=== PATIENT | female | born 1990 | race Asian ===

== ENCOUNTER → 2021-04-27 | Outpatient (CLI) | payer BC ==
[~2021-04-27] MED LIST: METHOTREXATE SODIUM (PF) 25 MG/ML 2 ML VIAL IM NR
[2021-04-27 11:40] VITALS: BP 114/74; PULSE 105; RESP 16; TEMP 98.5
== END ==
LOC: PROCWHC3 11:13
PROVIDERS: ATTEND Obstetrics & Gynecology
DX: O00.109 Unspecified tubal pregnancy without intrauterine pregnancy (principal); Z3A.00 Weeks of gestation of pregnancy not specified
CPT/HCPCS: 96402; J9260

== ENCOUNTER → 2021-04-27 | Outpatient (CLI) | payer BC ==
--- NOTE | 2021-04-27 10:23 | US ---
EXAMINATION TYPE: Transabdominal DATE OF EXAM: 04/27/2021 9:52 AM COMPARISON: NONE CLINICAL HISTORY: O26.851 BLEEDING/SPOTTING. bleeding since apr 03, no pain today, patient states her "numbers" are going up EXAM PERFORMED: OBTA/OBTV EXAM MEASUREMENTS: GESTATIONAL AGE / DATING Physician Established: Not yet established Dates by LMP: (8 weeks/0 days) EDC: 12/07/2021 Dates by First Scan: No previous this is first scan Dates by Current Scan for: no IUP seen MATERNAL ANATOMY Uterus: 6.2 x 4.9 x 4.0cm Right Ovary: 3.0 x 1.6 x 1.8cm Left Ovary: 2.2 x 1.1 x 1.7cm Post CDS / Adnexa: 3.2cm possible mass adjacent to right ovary Presence of free fluid: yes, mild rt adnexa and CDS Presence of corpus luteal cyst: not seen Presence of subchorionic bleed: no GESTATION / SURVEY No IUP seen Date of LMP: 03/02/2021 Beta HcG (if available): not done here IMPRESSION: No intrauterine noted at this time. In the setting of a positive beta hCG 3 possibilities i ncludes which include a normal early IUP, missed spontaneous as well as ectopic . C orrelate clinically with serial beta hCG and/or ultrasound.
[2021-04-27 18:32] LABS: HCT 37.5 % (37.2-46.3); HGB 12.4 g/dL (12.0-15.0); MCHC 33.1 g/dL (32.0-37.0); MCV 93.8 fL (80.0-97.0); NRBC Per 100 WBC 0 /100 WBCS (0.0-0.0); Platelet Count 239 X 10*3/uL (140-440); RDW 12.4 % (11.5-14.5); WBC 7.08 X 10*3/uL (4.50-10.00)
[2021-04-27 18:46] LABS: African American GFR (CKD) 150.5 (60.0-200.0); Blood Urea Nitrogen 9.8 mg/dL (9.0-27.0); Non-African American GFR(CKD) 129.9 (60.0-200.0)
== END | disposition home or self-care (01) ==
LOC: RADUSWWP 09:10
PROVIDERS: ATTEND Obstetrics & Gynecology
DX: O00.109 Unspecified tubal pregnancy without intrauterine pregnancy (principal); Z3A.00 Weeks of gestation of pregnancy not specified
CPT/HCPCS: 76801; 76817; 82565; 84450; 84460; 84520; 84702; 85027; 86850; 86900; 86901

== ENCOUNTER 2022-03-06 06:15 | Inpatient (IN) | payer BC ==
[2022-03-06] MEDS ORDERED: LIDOCAINE 0.5% (PF) 5 MG/ML (50 ML SDV) SQ PRN (07:03)
[2022-03-06] MEDS ORDERED: TERBUTALINE 1 MG/ML VIAL SQ PRN (07:03)
[2022-03-06] MEDS: LACTATED RINGERS 1,000 ML IV SCH ×4 (07:10→22:00)
[2022-03-06] MEDS ORDERED: OXYTOCIN 30 UNITS/500 ML NS 30 UNIT in SALINE 1 500ML.BAG IV SCH (07:15)
[2022-03-06 07:17] LABS: Basophils # (A) 0.1 k/uL (0-0.2); Basophils % (A) 1 %; Eosinophils # (A) 0.1 k/uL (0-0.7); Eosinophils % (A) 1 %; HGB 11.2 gm/dL (11.4-16.0); Lymphocytes # (A) 2.7 k/uL (1.0-4.8); Lymphocytes % (A) 28 %; MCH 29.3 pg (25.0-35.0); MCHC 34.1 g/dL (31.0-37.0); MCV 86.1 fL (80.0-100.0); Mean Platelet Volume 8.5; Monocytes # (A) 0.7 k/uL (0-1.0); Monocytes % (A) 7 %; Neutrophils # (A) 5.9 k/uL (1.3-7.7); Neutrophils % (A) 61 %; Platelet Count 211 k/uL (150-450); RBC 3.83 m/uL (3.80-5.40); RDW 14.4 % (11.5-15.5); WBC 9.7 k/uL (3.8-10.6)
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
[2022-03-06] MEDS ORDERED: fentaNYL (PF) 50 MCG/ML 5 ML AMP ONE (12:19)
[2022-03-06] MEDS ORDERED: SODIUM CHLORIDE 0.9% 100 ML BAG ONE (12:19)
[2022-03-06] MEDS ORDERED: ROPIVACAINE 5 MG/ML 20 ML AMPULE ONE (12:19)
[2022-03-06] MEDS ORDERED: ACETAMINOPHEN IV (For NPO) 1,000 MG in EMPTY BAG 1 BAG IVPB STA (16:43)
[2022-03-06] MEDS ORDERED: CITRIC ACID-SODIUM CITRATE 15 ML CUP PO ONE (19:48)
[2022-03-06] MEDS ORDERED: MIDAZOLAM 2 MG/2 ML VIAL ONE (20:45)
[2022-03-06] MEDS ORDERED: OXYTOCIN 30 UNITS/500 ML NS BAG IV ONE (20:45)
[2022-03-06] MEDS ORDERED: ONDANSETRON 4 MG/2 ML VIAL ONE (20:45)
[2022-03-06] MEDS ORDERED: fentaNYL (PF) 50 MCG/ML 2 ML AMP ONE (20:45)
[2022-03-06] MEDS ORDERED: KETOROLAC 15 MG/ML 1 ML VIAL ONE (20:45)
[2022-03-06] MEDS ORDERED: MORPHINE SULFATE (PF) 0.3 MG/0.3 ML SYR ONE (20:45)
[2022-03-06] MEDS ORDERED: KETAMINE 10 MG/ML 20 ML VIAL ONE (20:45)
[2022-03-06] MEDS ORDERED: METHYLERGONOVINE 0.2 MG/ML 1 ML AMP ONE (20:45)
[2022-03-06] MEDS ORDERED: DEXAMETHASONE SOD PHOS (MDV) 100 MG/10 ML VIAL ONE (20:45)
[2022-03-06] MEDS ORDERED: CAFFEINE-SODIUM BENZOATE 1,000 MG in SODIUM CHLORIDE 0.9% 1,000 ML IVPB ONE (21:30)
[2022-03-06] MEDS ORDERED: HYDROmorphone 1 MG/ML 1 ML SYRINGE IVP PRN (21:52)
[2022-03-06] MEDS ORDERED: NALOXONE 0.4 MG/ML 1 ML VIAL IV PRN ×2 (21:52→22:22)
[2022-03-06] MEDS ORDERED: diphenhydrAMINE 50 MG CAP PO PRN (21:52)
[2022-03-06] MEDS ORDERED: METOCLOPRAMIDE 5 MG/ML 2 ML VIAL IVP PRN (21:52)
[2022-03-06] MEDS ORDERED: ZOLPIDEM 5 MG TAB PO PRN (21:52)
[2022-03-06] MEDS ORDERED: ONDANSETRON 4 MG/2 ML VIAL IVP PRN (21:52)
[2022-03-06] MEDS ORDERED: diphenhydrAMINE 50 MG/ML 1 ML VIAL IVP PRN ×2 (21:52)
[2022-03-06] MEDS ORDERED: diphenhydrAMINE 25 MG CAP PO PRN (22:00)
[2022-03-06] MEDS ORDERED: HYDROmorphone 2 MG TAB PO PRN (22:00)
--- NOTE | 2022-03-06 22:09 | P.OP ---
Date of Procedure: 03/06/22 Preoperative Diagnosis: Intrauterine at 38-2/7 weeks Cholestasis of Spinal headache Maternal intolerance of labor Arrest of descent and dilatation Postoperative Diagnosis: Intrauterine at 38-2/7 weeks' gestation Cholestasis of Spinal headache Maternal intolerance of labor Arrest of descent and dilatation Occiput transverse Procedure(s) Performed: Primary low transverse section Anesthesia: spinal Surgeon: Charlette Chen Buck Presser #1: Juliana Welch Estimated Blood Loss (ml): 1,500 IV fluids (ml): 1,500 Urine output (ml): 200 Pathology: other (Placenta) Condition: stable Disposition: floor Indications for Procedure: This is a 31-year-old 4 para 20-2 woman who was admitted at 38-2/7 weeks' gestation for induction of labor secondary to cholestasis of . She underwent a Pitocin induction of labor and received an epidural anesthetic when she is approximate 4 cm dilated. Unfortunately this was difficult epidural placement in the patient immediately developed a spinal headache that persisted through the duration of her labor. She did reach complete cervical dilation however with maternal effort to push she had severe exacerbation of her head ache and neck pain. She was not able to facilitate any descent of the vertex and asynclitism was suspected. After discussing the situation in detail with the patient as well as anesthesiology team the decision was made to proceed to primary low transverse section. The risks of the procedure were reviewed with the patient and her and include bleeding, transfusion, infection, damage to bowel, bladder, ureters and/or other maternal or structures. The alternative which was to continue attempting to push was unacceptable to the patient and I was in agreement with this as well. Epidural was removed and when the patient was transported the operating room and a spinal was placed. Grossly bloody CSF fluid was noted at that time. Operative Findings: Female in the right occiput transverse position with Apgars of 8 at 1 minute and 9 at 5 minutes weighing 8 lbs. 0 oz., 3630 g. Extensive venous sinuses and varicosities along the anterior low uterine segment. Normal- appearing bilateral fallopian tubes and ovaries. Calcified and abnormal appearing placenta. Description of Procedure: After the patient and her were counseled and consent was obtained. She was transported to the operating room where spinal anesthetic was placed without difficulty. Of note bloody's CSF fluid was obtained. The patient was in positioned, prepped and draped in the dorsal supine position with a leftward tilt. After the anesthetic was confirmed adequate a low transverse skin incision was made and carried down to the underlying fascia sharply. The fascia was incised in the midline and extended bilaterally with the Heart scissors. The rectus muscles were then in the midline and the peritoneum was identified, tented up and entered sharply. The peritoneal incision was extended inferiorly and superiorly with good visualization the bladder. At this point the patient did not have optimal pain control. The bladder blade was placed and venous sinuses were noted on the low uterine segment. A low transverse uterine incision was made attempting to go superior to these venous sinuses. The incision was carried down to the underlying amniotic membranes sharply. The uterine incision was extended bilaterally bluntly. The was noted to be deeply engaged in the maternal pelvis. This is a difficult extraction of the vertex secondary to extreme petite maternal status. The head was also in the transverse position. The head was as gently as possible delivered through the incision and the rest the was delivered onto the field. The nose and mouth were bulb suctioned and the cord was clamped and cut. The infant was taken to the warmer. The placenta was then manually removed and was noted to be calcified. The uterus was then exteriorized. The uterus was quite atonic and the patient received Pitocin immediately. The uterine incision was delineated with Kim clamps and was noted to be a right lateral extension. Uterine vasculature was not involved. The uterine incision was then closed in a running locked fashion followed by second imbricating layer of the same. Several additional [id number] sutures were placed along the incision line for hemostasis which was then achieved. Of note the patient was quite uncomfortable throughout this process and her pain was managed by the anesthesiology team however the rectus muscles were quite tight. This made returning the uterus to the abdomen difficult. Once the uterus was returned to the abdomen the incision was further reinspected and was noted to be hemostatic. The gutters were cleared of clot and debris. There is noted to be multiple areas of bleeding along the rectus muscles which was addressed with Bovie electrocautery. Surgicel powder was placed prophylactically along the uterine incision as well as several areas on the rectus muscles. Hemostasis was then noted. The fascia was then closed in a running fashion with 0 Vicryl suture. The subcuticular tissue was irrigated and again Bovie electrocautery was utilized were necessary for hemostasis. The skin was then closed using lauren. Following completion of the surgery the uterus was noted to be boggy and well above the level of the umbilicus. Bimanual examination was then undertaken and a large amount of clot and debris were expressed, approximately 500 mL's. The uterus was then noted to be firm and at the level of the umbilicus. The patient did receive intraoperatively Methergine 1 and Hemabate 1. Prophylactically 800 g of Cytotec was also placed rectally. EBL for the entire of the surgery was approximately 1500ML. She received 1500 mL's of crystalloid intraoperatively. All counts reported to me as correct by the operating room staff and she did receive antibiotics preoperatively. She was transported to the re-recovery area in stable condition. Stat CBC and coags have been ordered. The placenta will be sent for pathology evaluation.
[2022-03-06] MEDS ORDERED: MORPHINE SULFATE 2 MG/ML SYRINGE IVP PRN (22:22)
[2022-03-06] MEDS ORDERED: KETOROLAC 15 MG/ML 1 ML VIAL IVP PRN (22:22)
[2022-03-06 22:54] LABS: HCT 28.9 % (34.0-46.0); Hypochromasia Slight; MCH 29.5 pg (25.0-35.0); MCHC 32.7 g/dL (31.0-37.0); MCV 90.3 fL (80.0-100.0); Mean Platelet Volume 8.7; Platelet Count 180 k/uL (150-450); RDW 14.6 % (11.5-15.5); WBC 31.2 k/uL (3.8-10.6)
[2022-03-06 22:58] LABS: Prothrombin Time 10.6 sec (9.0-12.0)
[2022-03-06 23:02] LABS: ALT 15 U/L (4-34); AST 29 U/L (14-36); African American GFR (CKD) >90 (>60 ml/min/1.73 sqM); Albumin 2.3 g/dL (3.5-5.0); Alkaline Phosphatase 160 U/L (38-126); Anion Gap 7 mmol/L; Blood Urea Nitrogen 4 mg/dL (7-17); Calcium 7.3 mg/dL (8.4-10.2); Carbon Dioxide 19 mmol/L (22-30); Chloride 114 mmol/L (98-107); Glucose 67 mg/dL (74-99); Non-African American GFR(CKD) >90 (>60 ml/min/1.73 sqM); Potassium 3.9 mmol/L (3.5-5.1); Sodium 140 mmol/L (137-145); Total Bilirubin 0.5 mg/dL (0.2-1.3); Total Protein 4.8 g/dL (6.3-8.2)
[2022-03-06 23:10] LABS: HGB 9.4 gm/dL (11.4-16.0)
[2022-03-07] MEDS: ACETAMINOPHEN TAB 500 MG TAB PO SCH ×4 (01:01→20:39)
[2022-03-07] MEDS: IBUPROFEN 600 MG TAB PO SCH ×3 (06:40→18:06)
[2022-03-07 07:08] LABS: Basophils % (A) 0 %; Eosinophils % (A) 0 %; HCT 23.2 % (34.0-46.0); Hypochromasia Slight; Lymphocytes # (A) 2.2 k/uL (1.0-4.8); Lymphocytes % (A) 8 %; MCH 30.3 pg (25.0-35.0); MCHC 34.2 g/dL (31.0-37.0); MCV 88.6 fL (80.0-100.0); Mean Platelet Volume 8.8; Monocytes # (A) 1.2 k/uL (0-1.0); Monocytes % (A) 5 %; Neutrophils # (A) 23.7 k/uL (1.3-7.7); Neutrophils % (A) 87 %; Platelet Count 178 k/uL (150-450); RBC 2.62 m/uL (3.80-5.40); RDW 14.8 % (11.5-15.5); WBC 27.3 k/uL (3.8-10.6)
[2022-03-07] MEDS: SENNOSIDES-DOCUSATE SODIUM 1 EACH TAB PO SCH ×2 (08:33→20:38)
--- NOTE | 2022-03-07 08:58 | P.PNOBGPC ---
Subjective - Subjective Principal diagnosis: Postop day 1 Interval history: Complaining of ongoing headache, neck pain and mild numbness and tingling in both hands. Sore at incision site but pain otherwise well controlled. She's had no further emesis overnight and did tolerate some broth this morning. Patient reports: Reports appetite normal, Reports pain well controlled, Denies voiding normally, Denies dizzy ambulation, Denies ambulating normally, Denies nauseated : doing well Objective - Vital Signs Latest vital signs: Vital Signs Temp Pulse Resp BP Pulse Ox 03/07/22 08:00 98.0 F 87 16 108/60 97 03/07/22 03:41 99.9 F H 77 19 104/63 100 03/07/22 00:00 16 03/06/22 23:55 97.6 F 86 16 141/64 03/06/22 23:25 96 16 152/65 99 03/06/22 22:55 112 H 16 141/82 99 03/06/22 22:40 97.8 F 86 15 117/53 99 03/06/22 22:25 126/74 03/06/22 22:10 15 134/89 100 03/06/22 21:55 93 15 122/79 99 Intake and Output 03/06/22 03/07/22 03/07/22 22:59 06:59 14:59 Output Total 1100 2300 200 Balance -1100 -2300 -200 Output: Urine 1200 200 Estimated Blood Loss 1100 Output, Quantitative 1100 Blood Loss - Exam Lungs: bilateral: normal Extremities: Present: normal Abdomen: Present: normal appearance, soft, distention. Absent: tenderness Incision: Present: normal, dry, intact, dressed Uterus: Present: normal, firm. Absent: tenderness - Labs Labs: Abnormal Lab Results - Last 24 Hours (Table) 03/06/22 03/06/22 03/07/22 Range/Units 10:35 10:35 06:41 WBC 31.2 H 27.3 H (3.8-10.6) k/uL RBC 3.20 L 2.62 L (3.80-5.40) m/uL Hgb 9.4 L D 8.0 L (11.4-16.0) gm/dL Hct 28.9 L 23.2 L (34.0-46.0) % Neutrophils # 23.7 H (1.3-7.7) k/uL Monocytes # 1.2 H (0-1.0) k/uL Chloride 114 H (98-107) mmol/L Carbon Dioxide 19 L (22-30) mmol/L BUN 4 L (7-17) mg/dL Creatinine 0.41 L (0.52-1.04) mg/dL Glucose 67 L (74-99) mg/dL Calcium 7.3 L (8.4-10.2) mg/dL Alkaline Phosphatase 160 H (38-126) U/L Total Protein 4.8 L (6.3-8.2) g/dL Albumin 2.3 L (3.5-5.0) g/dL Assessment and Plan (1) 38 weeks gestation of Current Visit: Yes Status: Acute Code(s): Z3A.38 - 38 WEEKS GESTATION OF SNOMED Code(s): 63181030 (2) Cholestasis during Current Visit: Yes Status: Acute Code(s): O26.619 - LIVER AND BILIARY TRACT DISORD IN , UNSP TRIMESTER; K83.1 - OBSTRUCTION OF BILE DUCT SNOMED Code(s): 835708456 (3) Spinal puncture headache Current Visit: Yes Status: Acute Code(s): G97.1 - OTHER REACTION TO SPINAL AND LUMBAR PUNCTURE SNOMED Code(s): 663021157 (4) Arrest of descent, delivered, current hospitalization Current Visit: Yes Status: Acute Code(s): O62.1 - SECONDARY UTERINE INERTIA SNOMED Code(s): 46905580 (5) S/P section Current Visit: Yes Status: Acute Code(s): Z98.891 - HISTORY OF UTERINE SCAR FROM PREVIOUS SURGERY SNOMED Code(s): 474731939 Plan: Postop day 1 status post primary low transverse section for maternal intolerance of labor, arrest of descent spinal headache intrapartum. Her hemoglobin is 8.0 this morning and she has no active vaginal bleeding the fundus is firm. She is receiving antibiotics secondary to prolonged section and manual evacuation of the uterus post operatively. Vital signs are currently stable and she is tolerating liquid diet. We will advance this slowly as she had significant on nausea and vomiting throughout her labor. The anesthesiology team as well aware of the spinal headache and will reassess later in the day for appropriateness of a blood patch procedure. Discontinue Chen catheter and encourage ambulation. Advance diet as tolerated.
--- NOTE | 2022-03-07 09:46 | P.PN ---
Progress Note - Text Progress Note Date: 03/07/22 Postop day 1 from under spinal anesthesia with intrathecal morphine given for postop pain management. Patient is doing fine. Pain control fair. On visual analog scale 5/10 Mild itching present Some nausea or vomiting reported. No weakness and numbness in the legs. Patient has headache possibly from possible post dural puncture. I advised to have plenty of fluids, NSAIDs and caffeinated beverages. We will reassess in the afternoon and if needed we will consider doing a epidural blood patch to alleviate the headache.
--- NOTE | 2022-03-07 10:53 | P.PCN ---
Date of Procedure: 03/07/22 Procedure(s) Performed: Operation= epidural blood patch. preoperative diagnosis= post dural puncture headache. Post operative diagnoses= post dural puncture headache. Anesthesia= local infiltration with lidocaine 1% 3 mL only Condition= stable. Complications= none. Indication for the procedure= this patient had epidural/spinal a few days ago, and currently patient complaining of severe positional headache, improved with the supine position and increased with the sitting and standing position, and she is diagnosed with post dural puncture headache, there is no focal neurological deficit, no fever,, and no neck stiffness, patient is a good candidate to have epidural blood patch, because the conservative treatment failed, risks and benefits of the procedure discussed with the patient and agreed with proceeding, Description of the procedure= patient in sitting position, back lumbar area prepped with chlorhexidine x3 times then the back draped , then L5 S1 interlaminar space local infiltration of the skin and subcu tissues with lidocaine 1% 3 mL, then 18-gauge Tuohy needle, advanced at the L5-S1 interlaminar space, as positive loss of resistance to normal saline, was no heme and no paresthesia, no cerebrospinal fluid, then after that 20 mL of autologous blood taken under strict sterile technique from the right antecubital area was prepped with the chlorhexidine 3 times, and using Angiocath 15 ML of the block taken from the right antecubital vein under strict sterile technique , was injected in the epidural space after negative aspiration for heme or cerebrospinal fluid, and there was no paresthesia, and after 15 ML of the blood injected in the epidural space and headache improved, and patient tolerated the procedure well without any immediate complication .
[2022-03-07] MEDS: IBUPROFEN IV 800 MG in SODIUM CHLORIDE 0.9% 250 ML IV SCH ×2 (13:53→14:11)
[2022-03-07] MEDS: LACTATED RINGERS 1,000 ML IV SCH (23:53)
[2022-03-08] MEDS: IBUPROFEN 600 MG TAB PO SCH ×4 (00:25→18:57)
[2022-03-08] MEDS: IBUPROFEN IV 800 MG in SODIUM CHLORIDE 0.9% 250 ML IV SCH ×2 (00:35→10:00)
[2022-03-08] MEDS: ACETAMINOPHEN TAB 500 MG TAB PO SCH ×4 (02:38→21:22)
--- NOTE | 2022-03-08 07:31 | P.PNOBGPC ---
Subjective - Subjective Principal diagnosis: Postop day 2 Interval history: Feeling significantly better. Headache entirely resolved status post blood patch yesterday. Including and voiding without difficulty. Minimal vaginal bleeding Patient reports: Reports appetite normal, Reports voiding normally, Reports pain well controlled, Reports ambulating normally, Denies nauseated [place]: doing well, other (Bili lights) Objective - Vital Signs Latest vital signs: Vital Signs Temp Pulse Pulse Resp BP Pulse Ox 03/08/22 04:00 97.6 F 76 16 110/62 98 03/08/22 00:00 97.8 F 77 16 110/64 98 03/07/22 20:00 97.5 F L 86 16 102/61 99 03/07/22 16:00 98.0 F 77 16 103/64 97 03/07/22 11:45 80 16 110/64 03/07/22 11:30 82 16 108/63 99 03/07/22 11:12 84 16 119/71 03/07/22 11:00 85 16 133/73 03/07/22 08:00 98.0 F 87 16 108/60 97 Intake and Output 03/07/22 03/08/22 03/08/22 22:59 06:59 14:59 Output Total 800 Balance -800 Output: Urine 800 Other: # Voids 1 1 - Exam Extremities: Present: normal. Absent: tenderness, edema Abdomen: Present: normal appearance, soft, distention. Absent: tenderness Incision: Present: normal, dry, intact. Absent: erythematous Uterus: Present: normal, firm. Absent: tenderness Assessment and Plan (1) 38 weeks gestation of Current Visit: Yes Status: Acute Code(s): Z3A.38 - 38 WEEKS GESTATION OF SNOMED Code(s): 20857730 (2) Cholestasis during Current Visit: Yes Status: Acute Code(s): O26.619 - LIVER AND BILIARY TRACT DISORD IN , UNSP TRIMESTER; K83.1 - OBSTRUCTION OF BILE DUCT SNOMED Code(s): 038236647 (3) Spinal puncture headache Current Visit: Yes Status: Acute Code(s): G97.1 - OTHER REACTION TO SPINAL AND LUMBAR PUNCTURE SNOMED Code(s): 295024442 (4) Arrest of descent, delivered, current hospitalization Current Visit: Yes Status: Acute Code(s): O62.1 - SECONDARY UTERINE INERTIA SNOMED Code(s): 63647857 (5) S/P section Current Visit: Yes Status: Acute Code(s): Z98.891 - HISTORY OF UTERINE SCAR FROM PREVIOUS SURGERY SNOMED Code(s): 898840768 Plan: Postop day 2 status post primary low transverse section secondary to maternal intolerance of labor, arrest of descent and dilatation and occiput transverse position. Her headache is completely resolved today and she is feeling significantly better. is under the bilirubin lights at this time. Awaiting a.m. labs. WBC is 27,000 yesterday however she remains afebrile. We'll likely discontinue antibiotics today. Probable discharge home tomorrow.
[2022-03-08 08:30] LABS: Basophils % (A) 0 %; Eosinophils # (A) 0.1 k/uL (0-0.7); Eosinophils % (A) 1 %; Hypochromasia Slight; Lymphocytes # (A) 2.3 k/uL (1.0-4.8); Lymphocytes % (A) 13 %; MCHC 31.8 g/dL (31.0-37.0); Mean Platelet Volume 8.9; Monocytes # (A) 0.9 k/uL (0-1.0); Monocytes % (A) 5 %; Neutrophils # (A) 14.3 k/uL (1.3-7.7); Neutrophils % (A) 80 %; Platelet Count 197 k/uL (150-450); RBC 2.24 m/uL (3.80-5.40); RDW 15.7 % (11.5-15.5)
[2022-03-08 08:33] LABS: HCT 19.7 % (34.0-46.0)
[2022-03-08 08:35] LABS: HGB 6.3 gm/dL (11.4-16.0)
[2022-03-08] MEDS: SENNOSIDES-DOCUSATE SODIUM 1 EACH TAB PO SCH ×2 (09:10→21:22)
[2022-03-08] MEDS: FERROUS SULFATE 325 MG TAB PO SCH ×2 (09:35→18:56)
[2022-03-08] MEDS: LACTATED RINGERS 1,000 ML IV SCH (10:00)
[2022-03-09] MEDS: IBUPROFEN 600 MG TAB PO SCH ×2 (01:15→08:15)
[2022-03-09] MEDS ORDERED: SODIUM CHLORIDE 0.65% NASAL SPRAY 44 ML BTL NASAL PRN (02:41)
[2022-03-09] MEDS: ACETAMINOPHEN TAB 500 MG TAB PO SCH ×2 (03:34→10:57)
[2022-03-09] MEDS: FERROUS SULFATE 325 MG TAB PO SCH (08:15)
[2022-03-09] MEDS: SENNOSIDES-DOCUSATE SODIUM 1 EACH TAB PO SCH (08:15)
--- NOTE | 2022-03-09 08:53 | P.DS ---
Providers Date of admission: 03/06/22 06:18 Expected date of discharge: 03/09/22 Attending physician: Charlette Chen Primary care physician: Stated None - Discharge Diagnosis(es) (1) 38 weeks gestation of Current Visit: Yes Status: Acute (2) Cholestasis during Current Visit: Yes Status: Acute (3) Spinal puncture headache Current Visit: Yes Status: Acute (4) Arrest of descent, delivered, current hospitalization Current Visit: Yes Status: Acute (5) S/P section Current Visit: Yes Status: Acute Hospital Course: This is a G5 now P3 women admitted at 38 weeks gestation for induction of labor due to cholestasis of . She was admitted and underwent pitocin IOL with artificial rupture of membranes. She progressed to active labor and recieved an epidural upon request. There was a dura puncture with the epidural and she immediately experienced a severe headache and neck pain. This continued throughout the first stage of labor. She did progress to anterior lip dilated with some urge to push. With maternal effort however her headache and neck pain were intolerable. She was allowed to labor down for some time however the head was assynclitic without maternal effort and did not descend. With discussion the decision was made to proceed to section. At the time of csection finding notable for a female in the deeplly engaged occiput transverse position. Apgars 8 and 9, weight 8 pounds 4 ounces. There was uterina atony and extension of the uterine incision that was ultimately repaired and homeostasis achieved with EBL from surgery approximately 1500 mL. She received pitocin, methergine, hemabate and rectal cytotec. Her immediate post op hgb was 9.4 with normal coags. On POD 1 she recieved a blood patch with improvement of her headache. POD1 hgb was 8.0 and she had no active bleeding. Antibiotics with continued due to elevated WBC and high EBL form surgery but she remained afebrile. By POD 2 her headache was gone and she was ambulating and voiding without difficulty. She was tolerating a general diet and was afebrile. Antibiotics were stopped. Her POD2 hgb did taisha at 6.3 but she was asymptomatic. The required bili lights. On POD 3 she had minimal pain at her incision but her headache returned, worse with sitting up. She declined further eval for blood patch and requested d/c home. Her incision appeared well healing and she was started on iron BID. Instructed on post op care and close follow up. Patient Condition at Discharge: Good Plan - Discharge Summary New Discharge Prescriptions: New Ferrous Sulfate [Iron (65 MG Elemental)] 325 mg PO BID-W/MEALS #60 tab Ibuprofen [Motrin] 600 mg PO Q6H tab Acetaminophen Tab [Tylenol] 1,000 mg PO Q6H tab Continue Citalopram Hydrobromide [CeleXA] 1 tab PO DAILY No Action Vit No.179/Iron/Folic [ Tablet] 1 tab PO DAILY Famotidine [Pepcid AC] 1 tab PO DAILY Discharge Medication List Citalopram Hydrobromide [CeleXA] 1 tab PO DAILY 03/06/22 [History] Famotidine [Pepcid AC] 1 tab PO DAILY 03/06/22 [History] Vit No.179/Iron/Folic [ Tablet] 1 tab PO DAILY 03/06/22 [History] Acetaminophen Tab [Tylenol] 1,000 mg PO Q6H tab 03/09/22 [Rx] Ferrous Sulfate [Iron (65 MG Elemental)] 325 mg PO BID-W/MEALS #60 tab 03/09/22 [Rx] Ibuprofen [Motrin] 600 mg PO Q6H tab 03/09/22 [Rx] Follow up Appointment(s)/Referral(s): Charlette Chen MD [STAFF PHYSICIAN] - 1 Week Activity/Diet/Wound Care/Special Instructions: Contact the office with any heavy vaginal bleeding, severe abdominal or pelvic pain, fever greater than 100.4 degrees, redness or swelling of the lower extremities or any other concners. Follow up in on e week. No heavy lifting or intercourse. Discharge Disposition: HOME SELF-CARE
[2022-03-09 09:38] VITALS: BP 108/71; PULSE 83; RESP 16; TEMP 97.5
== END 2022-03-09 12:15 | disposition home or self-care (01) | DRG 786 ==
LOC: 4FBP 06:18
PROVIDERS: ADMIT Obstetrics & Gynecology; ATTEND Obstetrics & Gynecology
PROC: 3E033VJ Introduction of Other Hormone into Peripheral Vein, Percutaneous Approach (ICD-10-PCS; 2022-03-06)
PROC: 10907ZC Drainage of Amniotic Fluid, Therapeutic from Products of Conception, Via Natural or Artificial Opening (ICD-10-PCS; 2022-03-06)
PROC: 10D00Z1 Extraction of Products of Conception, Low, Open Approach (ICD-10-PCS; principal; 2022-03-06 21:36)
PROC: 3E0R3GC Introduction of Other Therapeutic Substance into Spinal Canal, Percutaneous Approach (ICD-10-PCS; 2022-03-07)
DX: O26.62 Liver and biliary tract disorders in childbirth (principal); K83.1 Obstruction of bile duct; O72.1 Other immediate postpartum hemorrhage; O75.81 Maternal exhaustion complicating labor and delivery; O89.4 Spinal and epidural anesthesia-induced headache during the puerperium; O99.02 Anemia complicating childbirth; O62.1 Secondary uterine inertia; O71.81 Laceration of uterus, not elsewhere classified; O32.2XX0 Maternal care for transverse and oblique lie, not applicable or unspecified; O99.344 Other mental disorders complicating childbirth; Z37.0 Single live birth; Z3A.38 38 weeks gestation of pregnancy; Z28.310 Unvaccinated for COVID-19; F32.A Depression, unspecified; Z79.899 Other long term (current) drug therapy; Z86.11 Personal history of tuberculosis; Z91.410 Personal history of adult physical and sexual abuse
CPT/HCPCS: 80053; 85025; 85027; 85610; 86850; 86900; 86901